=== PATIENT | female | born 1990 | race African-American/Black ===

== ENCOUNTER 2019-01-07 23:09 | Day surgery (SDC) | payer OTHER, SELFPAY ==
[2019-01-08 00:41] VITALS: BMI 38.3
--- NOTE | 2019-01-08 00:43 | PDOC.LDHP ---
Labor and Delivery H&P HPI: HPI: This is a 28 yo at 27.5 wks presenting for evaluation of flank pain getting worse for the last 2 days. The pain is constant, nothing makes it better or worse. She denies burning or blood with urination. She denies fevers, but has had chills. Was treated with cefoxadil for a uti on 12/07/18 but only took the pills for 2 days. She was then treated with nitrofurantoin on 01/07/19 but only took 2 pills. She states she would like a different kind of medicine. She states her doctor told her she had an e. coli infection. She has had mild nausea, but no vomiting. Still tolerating PO intake. She affirms movement, denies cxns, ROM, bleeding/discharge. Denies TOLEDO, visual changes, SOB, or swelling. History: OB hx: 2 miscarriages early PMH: neg PSH: neg Meds: PNV, above abx Soc Hx: denies smoking, alcohol, drugs REVIEW OF SYSTEMS: Gen: no fever, or sweats, +chills Neuro: no numbness/tingling, no weakness, denies headache Eyes: no visual changes ENT: no hearing changes, no sore throat, no runny nose Resp: no cough, no SOB, no wheeze Card: denies chest pain, no palpitations GI: no N/V/D, no abdominal pain, + flank pain bilaterally : no dysuria, no hematuria MSK: no myalgias, no joint pain/stiffness Heme: no easy bruising/bleeding Skin: no rash, no erythema PHYSICAL EXAMINATION: General: NAD, alert and oriented x3 HEENT: PERRLA, EOMI, normal sclera, oropharynx without erythema or exudate Neck: Supple. Full ROM. Heart/Cardiovascular System: RRR, Cap refill < 3 seconds, no rub, no murmur Lungs/Respiratory System: clear to auscultation bilaterally. No increased work of breathing. Room air. Abdomen/Gastro-Intestinal System: no abdominal tenderness, normal bowel sounds, Gravid, pain is worst with palpation of the center of the back, very mild cva tenderness bilatearlly Extremities: Warm extremities. No cyanosis or edema. Neuro: No gross deficits appreciated. CN 2-12 grossly intact Psychiatry: Awake, Alert and cooperative with exam Skin/ Integumentary: No lesions, rashes, or ulcers Musculoskeletal: Full ROM A/P: This is a 28 yo at 27.6 wks # r/o pyelonephritis - 2 inadequately treated UTIs based on hx, was told she had e. coli uti - Check cbc, cmp, ua, procal, renal US # 27.6 wk gestation - monitoring Allergies/Adverse Reactions: Allergies Allergy/AdvReac Type Severity Reaction Status Date / Time No Known Allergies Allergy Verified 01/08/19 00:31 Addendum - Attending - Attending Attestation Date/Time: 01/08/19 0200 I personally evaluated the patient and discussed the management with Dr. Andrew. I agree with the History, Examination, Assessment and Plan documented above.
[2019-01-08 00:53] LABS: #Basophils 0.1 thou/uL (0.0-0.2); #Eosinphils 0.2 thou/uL (0.0-0.7); #Lymphocytes 1.9 thou/uL (1.20-3.40); #Monocytes 0.9 thou/uL (0.11-0.59); #Neutrophils 11.4 thou/uL (1.40-6.50); %Basophils 0.5 % (0.0-1.0); %Eosinophils 1.5 % (0.0-10.0); %Lymphocytes 12.8 % (21.0-51.0); %Monocytes 6.1 % (0.0-10.0); Hemoglobin 10.7 g/dL (12.0-16.0); Mean Corpuscular HGB CONC 33.4 g/dL (32.0-36.0); Mean Corpuscular Hemoglobin 23.6 pg (27.0-31.0); Mean Corpuscular Volume 70.7 fL (78.0-98.0); Platelet Count 332 thou/uL (130-400); RBC Distribution Width 15.8 % (11.5-14.5); Red Blood Cell (RBC) Count 4.54 mill/uL (4.20-5.40); White Blood Cell (WBC) Count 14.4 thou/uL (4.8-10.8)
[2019-01-08 01:11] LABS: ALT (SGPT) 43 U/L (8-55); AST (SGOT) 51 U/L (5-34); Albumin 3.6 g/dL (3.5-5.0); Alkaline Phosphatase 103 U/L (40-150); Anion Gap 15 mmol/L (10-20); BUN (Urea Nitrogen) 5 mg/dL (7.0-18.7); Bilirubin, Total 0.4 mg/dL (0.2-1.2); Calc. Creatinine Clearance 220 mL/min (70-130); Calcium 9.7 mg/dL (7.8-10.44); Carbon Dioxide 19 mmol/L (22-29); Chloride 104 mmol/L (98-107); Estimated GFR-MDRD Greater than 90; Globulin 3.9 g/dL (2.4-3.5); Glucose 77 mg/dL (70-105); Lipase 27 U/L (8-78); Potassium 3.8 mmol/L (3.5-5.1); Protein, Total 7.5 g/dL (6.0-8.3); Sodium 134 mmol/L (136-145)
[2019-01-08 01:18] LABS: Bilirubin Negative (Negative); Blood, Urine Trace (Negative); Clarity CLEAR (Clear); Glucose, Urine (Dipstick) Negative (Negative); Leukocyte Trace (Negative); Nitrite Negative (Negative); Protein, Urine (Dipstick) Negative (Neg-Trace)
[2019-01-08 01:21] LABS: Bacteria/HPF None Seen HPF (None Seen); Hyaline Casts/LPF 0-3 HYALINE CAST LPF (0-3 Hyaline); Pathc Cast-AUWi Flag 0.54 (0-2.49); Squamous Epithelial 0-3 HPF (0-3); WBC/HPF 0-3 HPF (0-3)
[2019-01-08 01:27] LABS: Urine Culture Reflex Yes Yes
--- NOTE | 2019-01-08 02:03 | PDOC.EVN ---
Event Note - Event Note Event Note: WBC 14.4, ua w/ trace leuk est and blood, no bact Cr 0.68 Renal US shows no hydronephrosis, uretral jets bilaterally (no obstruction) asx gallstones will d/c patient on augmentin BID for 7 days, does not appear to have pyelonephritis or obstructing nephrolithiasis F/u with Dr. Forrest in clinic this week. As above. Evaluted with Dr. Andrew. No evidence of pyelonephritis, like partially treated UTI. Will DC home on Augmentin to f/u with Dr. Forrest.
--- NOTE | 2019-01-08 08:04 | ULT ---
RENAL ULTRASOUND: CLINICAL HISTORY: patient with back pain. HISTORY: Urinary tract infection. FINDINGS: Symmetric renal lengths, each approximately 11 cm in length demonstrated. There is no overt hydronep hrosis or suspicious renal lesion. Urinary bladder is mildly distended with ureteral jets documented by Doppler color flow imaging. Incidental note of cholelithiasis. IMPRESSION: 1. No overt hydronephrosis of either kidney. 2. Incidental cholelithiasis. Correlate clinically. POS: [facility]
== END 2019-01-08 02:15 | disposition home or self-care (01) ==
LOC: ERS 23:09 → SDC 23:09 → EDSTATUS 23:47 → L&D/OP 23:56
PROVIDERS: ATTEND Obstetrics & Gynecology
DX: O99.89 Other specified diseases and conditions complicating pregnancy, childbirth and the puerperium (principal); R10.9 Unspecified abdominal pain; Z3A.27 27 weeks gestation of pregnancy; Z79.2 Long term (current) use of antibiotics
CPT/HCPCS: 36415; 51701; 76770; 80053; 81001; 83690; 84145; 85025; 87086; 99283

== ENCOUNTER 2019-02-25 18:01 | Emergency (ER) | payer OTHER ==
[2019-02-25 18:57] LABS: Hemoglobin 11.1 g/dL (12.0-16.0); Mean Corpuscular HGB CONC 32.8 g/dL (32.0-36.0); Mean Corpuscular Hemoglobin 22.1 pg (27.0-31.0); Mean Corpuscular Volume 67.3 fL (78.0-98.0); Mean Platelet Volume 9.8 fL (7.4-10.4); Platelet Count 228 thou/uL (130-400); Red Blood Cell (RBC) Count 5.02 mill/uL (4.20-5.40); White Blood Cell (WBC) Count 12.4 thou/uL (4.8-10.8)
[2019-02-25 19:20] LABS: #Basophils 0.1 thou/uL (0.0-0.2); #Eosinphils 0.1 thou/uL (0.0-0.7); #Lymphocytes 1.5 thou/uL (1.20-3.40); #Neutrophils 9.7 thou/uL (1.40-6.50); %Basophils 0.4 % (0.0-1.0); %Eosinophils 0.7 % (0.0-10.0); %Lymphocytes 12.1 % (21.0-51.0); %Monocytes 8.1 % (0.0-10.0); %Neutrophils 78.7 % (42.0-75.0); Anisocytosis SLIGHT = 6-15 cells (100X) (0-5/hpf); Hypochromia SLIGHT = 6-15 cells (100X) (0-5/hpf); Large Platelets SLIGHT; MDiff Complete? YES; Microcytosis SLIGHT = 6-15 cells (100X) (0-5/hpf); Platelet Morphology Comment Appears Adequate; Poikilocytosis SLIGHT = 6-15 cells (100X) (0-5/hpf)
[2019-02-25 19:25] LABS: ALT (SGPT) 13 U/L (8-55); AST (SGOT) 36 U/L (5-34); Albumin 3.5 g/dL (3.5-5.0); Alkaline Phosphatase 131 U/L (40-150); Anion Gap 18 mmol/L (10-20); BUN (Urea Nitrogen) 5 mg/dL (7.0-18.7); Bilirubin, Total 0.4 mg/dL (0.2-1.2); CK (CPK) 33 U/L (29-168); Calc. Creatinine Clearance 0 mL/min (70-130); Calcium 9.2 mg/dL (7.8-10.44); Carbon Dioxide 17 mmol/L (22-29); Chloride 104 mmol/L (98-107); Estimated GFR-MDRD Greater than 90; Globulin 4.7 g/dL (2.4-3.5); Glucose 66 mg/dL (70-105); Magnesium 2.5 mg/dL (1.6-2.6); Potassium 5.4 mmol/L (3.5-5.1); Protein, Total 8.2 g/dL (6.0-8.3); Sodium 134 mmol/L (136-145)
[2019-02-25 20:15] LABS: Bilirubin Negative (Negative); Blood, Urine Trace (Negative); Clarity TURBID (Clear); Glucose, Urine (Dipstick) Negative (Negative); Leukocyte Large (Negative); Nitrite Positive (Negative); Protein, Urine (Dipstick) Trace mg/dL (Neg-Trace); Specific Gravity, Urine 1.011 (1.002-1.036); pH, Urine 6.5 (5.0-9.0)
[2019-02-25 20:17] LABS: Bacteria/HPF 4+ HPF (None Seen); Hyaline Casts/LPF 4-6 HYALINE CAST LPF (0-3 Hyaline); Pathc Cast-AUWi Flag 1.19 (0-2.49)
[2019-02-25 20:19] LABS: Yeast-AUWi Flag 54.2 (0-25.0)
[2019-02-25 20:28] LABS: Yeast-All Forms None Seen HPF (None Seen)
== END 2019-02-25 21:02 | disposition home or self-care (01) ==
LOC: ERS 18:01
DX: O99.89 Other specified diseases and conditions complicating pregnancy, childbirth and the puerperium (principal); R55 Syncope and collapse
CPT/HCPCS: 80053; 81003; 81015; 82550; 83735; 84484; 85025; 93005; 96360

== ENCOUNTER 2019-03-26 20:39 | Inpatient (IN) | payer OTHER ==
[2019-03-26 21:20] VITALS: BMI 39.9
[2019-03-26 22:10] LABS: Amnisure Test No Membranes Rupture (No Rupture)
[2019-03-26 22:12] LABS: Amnisure Internal Control QC ACCEPTABLE (ACCEPTABLE)
--- NOTE | 2019-03-26 23:49 | ULT ---
US Biophysical Profile History: Pelvic pain. Comparison: None. Findings: Real-time grayscale and color evaluation of the gravid uterus was performed. Single viable intrauterine . Cervix is closed measuring 4.9 cm in length. Placenta is anteri or. Biophysical profile score is 8/8. Total amniotic fluid: 10.5 cm. heart rate documented at 149 bpm. Impression: Biophysical profile score of 8/8.
[2019-03-27] MEDS: Lactated Ringer's 1,000 ML IV SCH ×2 (01:05→05:06)
[2019-03-27] MEDS ORDERED: Lactated Ringer's 500 ML IV SCH (02:15)
--- NOTE | 2019-03-27 02:26 | HP ---
REGULAR PHYSICIAN: Dony Forrest MD. EVALUATING PHYSICIAN: Beck Mckeon MD CHIEF COMPLAINT: Leakage of fluid at home. HISTORY OF PRESENT ILLNESS: Ms. Silveira is a 28-year-old black G2, P0, AB1 with an estimated date of confinement of 04/03/2019, who presents complaining of suspected loss of fluid at 8 p.m. tonight. She states it was a gush of fluid. She denies uterine contractions, vaginal bleeding, or decreased movement. Her care has been with Dr. Forrest and she said to be induced later this week. PAST OBSTETRICAL HISTORY: One spontaneous miscarriage early, not requiring a D and C. PAST MEDICAL HISTORY: None. PAST SURGICAL HISTORY: None. CURRENT MEDICATIONS: 1. vitamins. 2. Keflex. ALLERGIES: MACROBID WHICH SHE STATES MAKES HER NAUSEOUS AND VOMITS. SOCIAL HISTORY: She denies tobacco or alcohol use. She denies street drugs. FAMILY HISTORY: Unremarkable. PHYSICAL EXAMINATION: VITAL SIGNS: Stable and she is afebrile in triage. GENERAL: She is in no acute distress. ABDOMEN: Soft, nontender, and gravid. Sterile vaginal exam after obtaining an AmniSure by the labor nurse is 1 cm thick with a vertex presenting. heart rate tracing is stable upon initial evaluation, but she did have what appeared to be a deceleration later in triage. Good resolution of the FHTs were noted. LABORATORY DATA: AmniSure returns negative. Biophysical profile was performed and returns 05/11. ASSESSMENT: 1. A 39-week intrauterine . 2. No evidence of ruptured membranes at this time. 3. Isolated deceleration in triage with resolved FHTs at this time. PLAN: The nursing staff spoke with Dr. Forrest in my absence, and it was decided that the patient will be observed overnight. An IV was started and she was given a fluid bolus. The patient will be observed carefully. Job ID: [id number]
[2019-03-27 03:24] LABS: Amphetamine Not Detected (NotDetected); Barbiturates Screen Not Detected (NotDetected); Benzodiazepine Screen Not Detected (NotDetected); Cocaine Metabolite Screen Not Detected (NotDetected); Medtox Control Line Valid? VALID (VALID); Medtox Reader # READER 4; Methadone Not Detected (NotDetected); Methamphetamine Not Detected (NotDetected); Opiate Screen Not Detected (NotDetected); Oxycodone Screen Not Detected (NotDetected); Phencyclidine (PCP) Not Detected (NotDetected); THC/Cannabinoid Screen Not Detected (NotDetected); Tricyclic Screen Not Detected (NotDetected)
[2019-03-27] MEDS ORDERED: hydrALAZINE 20 MG/ML VIAL SLOW IVP PRN (14:30)
[2019-03-27] MEDS ORDERED: NS / Oxytocin 40 units/1000ml 1,000 ML IV PRN (14:30)
[2019-03-27] MEDS ORDERED: Lidocaine 1% (PF) 30 ML VIAL SC PRN (14:30)
[2019-03-27] MEDS ORDERED: Promethazine HCl 25 MG/ML VIAL IM PRN (14:30)
[2019-03-27] MEDS ORDERED: Ondansetron PF 4 MG/2 ML Vial IVP PRN (14:30)
[2019-03-27] MEDS ORDERED: Acetaminophen 500 MG TAB PO PRN (14:45)
[2019-03-27] MEDS ORDERED: Ibuprofen 800 MG TAB PO PRN (14:45)
[2019-03-27] MEDS ORDERED: Diphenoxylate HCl/Atropine Tablet PO PRN ×2 (14:45)
[2019-03-27] MEDS ORDERED: Misoprostol 200 MCG TAB PR PRN (14:45)
[2019-03-27] MEDS ORDERED: Zolpidem Tartrate 5 MG TAB PO PRN (14:45)
[2019-03-27] MEDS ORDERED: NS w/ Oxytocin 10 units 500 ML IV SCH (14:45)
[2019-03-27] MEDS ORDERED: Carboprost 250 MCG/ML AMP IM PRN (14:45)
[2019-03-27] MEDS ORDERED: HYDROcodone/Acetaminophen 5/325 mg Tablet PO PRN ×2 (14:45)
[2019-03-27] MEDS ORDERED: Misoprostol 100 MCG TAB VAG SCH (15:00)
[2019-03-27 16:22] LABS: Syphilis Antibody Nonreactive (Nonreactive); Syphilis Antibody Index 0.05 S/CO (<1.00 Non-Reactive)
[2019-03-27 16:23] LABS: HBSAg Index 0.26 S/CO (0-0.99); Hep B Surf Ag Non-Reactive S/CO (NonReactive)
[2019-03-27 16:24] LABS: Hemoglobin 9.6 g/dL (12.0-16.0); Mean Corpuscular HGB CONC 32.3 g/dL (32.0-36.0); Mean Corpuscular Hemoglobin 20.4 pg (27.0-31.0); Mean Corpuscular Volume 63.3 fL (78.0-98.0); Mean Platelet Volume 11.8 fL (7.4-10.4); Platelet Count 316 thou/uL (130-400); RBC Distribution Width 17.6 % (11.5-14.5); White Blood Cell (WBC) Count 12.7 thou/uL (4.8-10.8)
--- NOTE | 2019-03-27 22:52 | PDOC.LDHP ---
Labor and Delivery H&P HPI: 28 y/o at 39 and 0/7 weeks for term induction of labor. Patient already in house after 23 hour observation for c/o LOF and possible early labor. Patient had 8/8 BPP after sngle isolated hear tone deceleration during the night. Patient request to move up induction of labor by one day. Due date: 04/03/19 Grav: 2 Para: 0 Current complications: other Abnormal US findings: No Current medications: pre- vitamins Previous surgical history: none Allergies/Adverse Reactions: Allergies Allergy/AdvReac Type Severity Reaction Status Date / Time No Known Allergies Allergy Verified 01/08/19 00:31 Social history: none - Physical Exam Vital signs reviewed and normal: yes General: NAD, resting Heart: RRR Lungs: nonlabored breathing Abdomen: NTTP Extremeties: no edema FHT: category 1 - Vaginal Exam cm dilated: 1 - Assessment L&D Assessment: elective induction at term - Plan Plan: admit to L&D, labor augmentation if indicated
[2019-03-28] MEDS: Butorphanol Tartrate 1 MG/ML VIAL SLOW IVP PRN ×2 (00:59→03:00)
[2019-03-28] MEDS: Lactated Ringer's 1,000 ML IV SCH ×3 (01:01→11:35)
[2019-03-28] MEDS ORDERED: Fentanyl 4 mcg/Bup 0.1% Cadd 100 ML ONE ×3 (04:40→16:25)
[2019-03-28] MEDS ORDERED: Acetaminophen 325 MG TAB PO PRN (04:55)
[2019-03-28] MEDS ORDERED: Ondansetron PF 4 MG/2 ML Vial IVP PRN ×2 (04:55→21:38)
[2019-03-28] MEDS ORDERED: Naloxone HCl 0.4 mg/ml Vial IVP PRN ×4 (04:55→21:38)
[2019-03-28] MEDS ORDERED: Lactated Ringer's 500 ML IV PRN (04:55)
[2019-03-28] MEDS ORDERED: ePHEDrine/0.9% NaCl/PF SYRINGE 50 mg/10 ml SLOW IVP PRN (04:55)
[2019-03-28] MEDS ORDERED: Promethazine HCl 25 MG/ML VIAL IM PRN ×2 (04:55→21:38)
[2019-03-28] MEDS ORDERED: Lidocaine 1.5%/Epinephrine 1:200,000 5 ML AMPUL IJ ONE (04:59)
[2019-03-28] MEDS ORDERED: Communication Order-Pharmacy FS SCH ×2 (05:00→21:45)
[2019-03-28] MEDS: NS w/ Oxytocin 10 units 500 ML IV SCH ×2 (06:20→19:16)
[2019-03-28] MEDS: diphenhydrAMINE 50 MG/ML VIAL IVP PRN ×2 (09:56→12:59)
[2019-03-28] MEDS: Fentanyl 4 mcg/Bupivacaine 0.1% Cassette 100 ML EPIDURAL SCH ×2 (11:40→16:43)
[2019-03-28] MEDS ORDERED: Lidocaine 2% PF 5 ML VIAL ONE (12:26)
[2019-03-28] MEDS ORDERED: diphenhydrAMINE 50 MG/ML VIAL ONE ×2 (12:26→21:23)
[2019-03-28] MEDS ORDERED: Dexamethasone 20 MG/5 ML VIAL ONE (12:26)
[2019-03-28] MEDS ORDERED: Ondansetron PF 4 MG/2 ML Vial ONE ×2 (12:26→21:23)
[2019-03-28] MEDS ORDERED: Bicitra 30 ML UDCUP ONE (21:10)
[2019-03-28] MEDS ORDERED: MORPHINE 5 MG/10 ML PF VIAL ONE (21:21)
[2019-03-28] MEDS ORDERED: Lidocaine 2% 10 ML INJ ONE (21:23)
[2019-03-28] MEDS ORDERED: Ketorolac Tromethamine 30 MG/ML VIAL ONE (21:23)
[2019-03-28] MEDS ORDERED: ePHEDrine/0.9% NaCl/PF SYRINGE 50 mg/10 ml ONE (21:23)
[2019-03-28] MEDS ORDERED: Dexamethasone 4 mg/ml Vial ONE (21:23)
[2019-03-28] MEDS ORDERED: Oxytocin 10 UNITS/ML VIAL ONE (21:23)
[2019-03-28] MEDS ORDERED: Bupivacaine/Epinephrine 0.5% 10 ML VIAL ONE (21:23)
[2019-03-28] MEDS ORDERED: Phenylephrine HCL 10 MG/ML VIAL ONE (21:23)
[2019-03-28] MEDS ORDERED: Acetaminophen 1,000 MG in Premix Bag 1 BAG IVPB PRN (21:37)
[2019-03-28] MEDS ORDERED: Ondansetron HCl/PF 4 MG/2 ML Vial IVP PRN (21:38)
[2019-03-28] MEDS ORDERED: Promethazine HCl 25 MG SUPP PR PRN (21:38)
[2019-03-28] MEDS ORDERED: diphenhydrAMINE 50 MG/ML VIAL IVP PRN (21:38)
[2019-03-28] MEDS ORDERED: Naloxone HCl 0.4 mg/ml Vial IV PRN (21:38)
[2019-03-28] MEDS ORDERED: Ketorolac Tromethamine 30 MG/ML VIAL IVP SCH ×2 (21:45→23:59)
[2019-03-28] MEDS ORDERED: Methylergonovine 0.2 MG/ML VIAL ONE (22:14)
[2019-03-28] MEDS ORDERED: Fentanyl 100 MCG/2 ML VIAL ONE (22:39)
[2019-03-29] MEDS: Lactated Ringer's 1,000 ML IV SCH ×3 (02:12→02:13)
[2019-03-29] MEDS: Ketorolac Tromethamine 30 MG/ML VIAL IVP SCH ×3 (06:17→17:36)
[2019-03-29] MEDS ORDERED: Varicella virus, LIVE 0.5 ML VIAL SC ONE (07:06)
[2019-03-29] MEDS ORDERED: Bisacodyl 10 MG SUPP PR PRN (07:06)
[2019-03-29] MEDS ORDERED: Zolpidem Tartrate 5 MG TAB PO PRN (07:06)
[2019-03-29] MEDS ORDERED: Lanolin Ointment 7 GM TUBE TOP PRN (07:06)
[2019-03-29] MEDS ORDERED: hydrALAZINE 20 MG/ML VIAL SLOW IVP PRN (07:06)
[2019-03-29] MEDS ORDERED: Ondansetron PF 4 MG/2 ML Vial IVP PRN (07:06)
[2019-03-29] MEDS ORDERED: Promethazine HCl 25 MG/ML VIAL IM PRN (07:06)
[2019-03-29] MEDS ORDERED: Simethicone Chewable 80 MG TAB PO PRN (07:06)
[2019-03-29] MEDS ORDERED: diphenhydrAMINE 25 MG CAP PO PRN (07:06)
[2019-03-29] MEDS ORDERED: Adacel (T-DAP) 0.5 ML SYRINGE IM ONE (07:06)
[2019-03-29] MEDS ORDERED: NS / Oxytocin 40 units/1000ml 1,000 ML IV SCH (07:15)
[2019-03-29 07:50] LABS: Hemoglobin 8.3 g/dL (12.0-16.0); Mean Corpuscular HGB CONC 32.4 g/dL (32.0-36.0); Mean Corpuscular Hemoglobin 20.4 pg (27.0-31.0); Mean Corpuscular Volume 63.1 fL (78.0-98.0); Mean Platelet Volume 10.6 fL (7.4-10.4); Platelet Count 276 thou/uL (130-400); RBC Distribution Width 17.1 % (11.5-14.5); Red Blood Cell (RBC) Count 4.06 mill/uL (4.20-5.40); White Blood Cell (WBC) Count 24.7 thou/uL (4.8-10.8)
[2019-03-29] MEDS: Docusate Calcium (SURFAK) 240 MG CAP PO SCH ×2 (09:44→21:32)
[2019-03-29] MEDS: Ibuprofen 800 MG TAB PO SCH ×2 (12:40→22:25)
--- NOTE | 2019-03-29 19:25 | PDOC.PP ---
Post Progress Note Post Day #: 1 PO intake tolerated: yes Flatus: yes Ambulation: yes Vital Signs (12 hours) Temp Pulse Resp BP Pulse Ox 03/29/19 16:36 98.6 F 91 20 112/68 03/29/19 11:29 98.4 F 76 20 112/57 L 03/29/19 07:55 96 Weight Weight 255 lb 6.4 oz - Physical Examination General: NAD Cardiovascular: no m/r/g, RRR Respiratory: clear to auscultation bilaterally, non-labored breathing Abdominal: + bowel sounds, lochia, no distention, appropriately TTP Extremities: negative homans (B) Skin: CS incision dry & intact, no rash Neurological: no gross focal deficits Psychiatric: A&Ox3, normal affect Result Diagrams: 03/29/19 07:17 Additional Labs: Post Labs Blood Type B POSITIVE 03/27/19 16:06 Hep Bs Antigen Non-Reactive S/CO (NonReactive) 03/27/19 01:14
[2019-03-29] MEDS: HYDROcodone/Acetaminophen 5/325 mg Tablet PO PRN (22:25)
[2019-03-30] MEDS: Ketorolac Tromethamine 30 MG/ML VIAL IVP SCH ×4 (03:04→15:54)
[2019-03-30] MEDS: HYDROcodone/Acetaminophen 5/325 mg Tablet PO PRN ×4 (04:44→22:28)
[2019-03-30] MEDS: Ibuprofen 800 MG TAB PO SCH ×3 (06:19→20:56)
[2019-03-30] MEDS: Docusate Calcium (SURFAK) 240 MG CAP PO SCH ×3 (08:45→20:55)
[2019-03-30] MEDS: Measles/Mumps/Rubella 10 MCG/0.5 ML VIAL SC ONE (11:11)
--- NOTE | 2019-03-30 19:01 | PDOC.PP ---
Post Progress Note Post Day #: 2 PO intake tolerated: yes Flatus: yes Ambulation: yes Vital Signs (12 hours) Temp Pulse Resp BP Pulse Ox 03/30/19 16:33 97.6 F 88 20 114/59 L 03/30/19 11:31 98.2 F 80 20 113/59 L 03/30/19 08:17 98.8 F 74 20 110/56 L 98 03/30/19 07:40 98 Weight Weight 255 lb 6.4 oz - Physical Examination General: NAD Cardiovascular: no m/r/g, RRR Respiratory: clear to auscultation bilaterally, non-labored breathing Abdominal: + bowel sounds, lochia, no distention, appropriately TTP Extremities: negative homans (B) Skin: CS incision dry & intact, no rash Neurological: no gross focal deficits Psychiatric: A&Ox3, normal affect (DC home tomorrow planned) Result Diagrams: 03/29/19 07:17 Additional Labs: Post Labs Blood Type B POSITIVE 03/27/19 16:06 Hep Bs Antigen Non-Reactive S/CO (NonReactive) 03/27/19 01:14
[2019-03-30 22:46] VITALS: TEMP 98.8
--- NOTE | 2019-03-31 01:17 | OP ---
DATE OF PROCEDURE: 03/28/2019 TIME: At 2211 hours central daylight savings time. PREOPERATIVE DIAGNOSIS: Intrauterine at 39 weeks and 1 day who presents for term induction of labor and had a failure to dilate at 4 cm. She then underwent a primary low-transverse section. POSTOPERATIVE DIAGNOSES: Intrauterine at 39 weeks and 1 day who presents for term induction of labor and had a failure to dilate at 4 cm. She then underwent a primary low-transverse section as well as multiple uterine lesions identified. PROCEDURES PERFORMED: 1. Primary low-transverse section. 2. Myomectomy. ESTIMATED BLOOD LOSS: 1840 mL. My personal estimate for this case to be closer to 900 mL. FINDINGS: Viable female , weighing 3370 g or 7 pounds 7 ounces. Apgars of 8 and 9. COMPLICATIONS: None. DETAILS OF THE PROCEDURE: The patient was consented and taken back to the operating room where spinal anesthesia was found to be adequate. She was then prepped and draped in the normal sterile fashion. A timeout was performed by the entire operative team. The incision was then marked with a marking pen tested using sharp pickups. An incision was then made with a scalpel. The incision was carried through the adipose tissue down to the underlying rectus fascia using both sharp dissection as well as cautery. Once the fascia was identified, it was incised in the midline and then the fascial incision was carried through in both lateral directions using sharp as well as cautery dissection techniques. Next, the superior aspect of the rectus fascia was grasped with 2 Cayetano clamps, which was tented up and the rectus muscles were dissected off using blunt dissection as well as cautery dissection. Similarly, the inferior aspect of the fascial incision was grasped with 2 Cayetano clamps, tented up and the rectus muscles were dissected off bluntly as well as sharply. Next, the rectus muscles were in the midline and the peritoneum identified. The peritoneum was then carefully grasped with 2 hemostats and entered sharply. The peritoneal incision was extended superiorly and inferiorly and bladder blade was placed in the lower abdomen. At this point, the uterus was identified and the bladder flap was then developed using pickups with teeth as well as Metzenbaum scissors in both lateral directions. The bladder flap was then dissected downwards using the pack room operator's finger as well as Metzenbaum scissors. The bladder blade was replaced. The lower uterine segment was then identified and entered sharply using a clean scalpel. The uterine incision was then dissected downwards until thin layer of muscle remained and this was entered bluntly using a hemostat to avoid any injury to the baby. The uterine incision was then stretched using two fingers in both lateral directions. An amniotomy was performed artificially using a hemostat and the baby was delivered using fundal pressure in a gentle fashion. Once out, the baby's mouth and nose were bulb suctioned, cord clamped and cut, and the baby was handed to waiting attendants. Next, the uterus was exteriorized, cleared of all clots and debris and the uterine incision was repaired with #1 Monocryl in a running locking fashion. A 2nd suture of the same type was used to obtain complete hemostasis at the uterine incision. The bladder flap was reapproximated using 3-0 Monocryl. Next, patient's left and right adnexa were inspected and appeared to be within normal limits. The posterior cul-de-sac was blotted dry and hemostasis assured. One more look at the uterine incision demonstrated hemostasis. Next, the uterus was replaced back within the abdomen. The peritoneum was reapproximated using 2-0 Monocryl without difficulty. The rectus muscles were then allowed to come back together and 0 chromic was used to aid in reapproximation of the muscle as necessary. The rectus fascia was then reapproximated in a running fashion using 0 Vicryl suture. The adipose tissue was then examined and appeared to be well approximated without any obvious separations. Finally, the skin was reapproximated with 3-0 Monocryl on a Murtaza needle without difficulty and Dermabond adhesive was applied to the skin. Once the glue was dry, the drapes were removed and the patient was transferred to an ambulatory bed where she was taken to recovery awake and in stable condition. Sponge, lap, and needle counts were correct x3. Following closure of the uterus, the uterus was inspected and several small lesions were identified in the subserosal surface of the uterus. One of these was rather large and somewhat mobile and was selected for excision for a pathologic diagnosis. These lesions may represent uterine fibroids, by gross examination, could not confirm this. A myomectomy was then performed and the lesion sent to Pathology for permanent section. The area was cauterized and hemostasis was assured using a suturing and cauterizing technique, 2-0 chromic was used where necessary. Job ID: [id number]
[2019-03-31] MEDS: Ibuprofen 800 MG TAB PO SCH (05:50)
[2019-03-31 07:44] VITALS: BP 123/65
[2019-03-31] MEDS: HYDROcodone/Acetaminophen 5/325 mg Tablet PO PRN (09:44)
[2019-03-31] MEDS: Docusate Calcium (SURFAK) 240 MG CAP PO SCH (09:44)
[2019-03-31] MEDS: Measles/Mumps/Rubella 10 MCG/0.5 ML VIAL SC ONE (13:55)
== END 2019-03-31 14:30 | disposition home or self-care (01) | DRG 788 ==
LOC: L&D/OP 20:39 → UNDOADMOB 03-27 01:09 → L&D 03-27 01:09 → EEVIPCON 03-27 12:30 → L&D 03-27 12:30 → L&D/OP 03-27 14:40 → L&D 03-27 17:14 → 3SW 03-29 01:41
PROVIDERS: ADMIT Obstetrics & Gynecology; ATTEND Obstetrics & Gynecology
PROC: 10D00Z1 Extraction of Products of Conception, Low, Open Approach (ICD-10-PCS; principal; 2019-03-27)
PROC: 0UB90ZZ Excision of Uterus, Open Approach (ICD-10-PCS; 2019-03-27)
DX: O76 Abnormality in fetal heart rate and rhythm complicating labor and delivery (principal); O34.13 Maternal care for benign tumor of corpus uteri, third trimester; D25.9 Leiomyoma of uterus, unspecified; Z3A.39 39 weeks gestation of pregnancy; Z37.0 Single live birth; O62.1 Secondary uterine inertia
CPT/HCPCS: 36415; 51702; 76819; 80306; 84112; 85027; 86780; 86850; 86900; 86901; 87340; 88305; 90707; 90715; 99285; J0595; J0690; J1100; J1200; J1885; J2001; J2210; J2274; J2370; J2405; J2590; J3010; J3490